=== PATIENT | female | born 1940 | race Caucasian/White ===

== ENCOUNTER → 2021-05-03 | Outpatient (CLI) | payer OTHER | LOC: M.ULTRA 09:38 | PROVIDERS: ATTEND Nurse Practitioner Primary Care | DX: N18.4 Chronic kidney disease, stage 4 (severe) (principal) ==

== ENCOUNTER 2021-05-27 10:47 | Emergency (ER) | payer OTHER ==
[~2021-05-27] VITALS: Ht 157.5 cm; Wt 77.1 kg
[2021-05-27] MEDS ORDERED: LOPRESSOR100 M1 PO (10:59)
[2021-05-27] MEDS ORDERED: AMARYL2 M1 PO (10:59)
[2021-05-27] MEDS ORDERED: XARELTO20 MG PO (10:59)
[2021-05-27] MEDS ORDERED: TRESIBA100 UNIT/1 SUBQ (10:59)
[2021-05-27] MEDS ORDERED: LOVASTATIN 20 M20 MG PO (11:00)
[2021-05-27] MEDS ORDERED: PLAVIX 75 MG TA75 MG PO (11:00)
[2021-05-27] MEDS ORDERED: HYDROCODON-ACE1 EAC7 PO (11:41)
[2021-05-27 11:45] VITALS: BP 171/88
== END 2021-05-27 11:46 | disposition home or self-care (01) ==
LOC: M.ERS 10:47
DX: S60.221A Contusion of right hand, initial encounter (principal); E11.9 Type 2 diabetes mellitus without complications; I10 Essential (primary) hypertension; Z79.899 Other long term (current) drug therapy; Z88.5 Allergy status to narcotic agent; Z88.2 Allergy status to sulfonamides; W01.0XXA Fall on same level from slipping, tripping and stumbling without subsequent striking against object, initial encounter; Y93.89 Activity, other specified; Y92.89 Other specified places as the place of occurrence of the external cause; Y99.8 Other external cause status